=== PATIENT | male | born 1995 | race Caucasian/White ===

== ENCOUNTER → 2017-03-14 | Outpatient (CLI) | payer OTHER ==
--- NOTE | 2017-03-14 15:24 | Diagnostic Imaging Report ---
Indication: PAIN chest pain and congestion Technique: 2 views of the chest Comparison: none. Findings: There is central bronchial wall thickening. Lungs and pleural spaces are clear. They appear somewhat hyperinflated Heart size is normal. Bones are unremarkable.. Impression: No acute process Apparent hyperinflation. While possibly just representing an optimal inspiration in a young patient, blunting of the posterior costophrenic sulcus on the lateral view indicates that hyperinflation may be real, raising possibility of asthma. There is also suggestion of central bronchial wall thickening, also supporting the diagnosis of such
== END | disposition home or self-care (01) ==
LOC: RAD 13:17
DX: R07.9 Chest pain, unspecified (principal)
CPT/HCPCS: 71020